=== PATIENT | male | born 1985 | race Hispanic/Latino ===

== ENCOUNTER 2025-01-23 17:44 | Emergency (ER) | payer OTHER ==
[~2025-01-23] VITALS: Ht 170.2 cm; Wt 117.9 kg
[2025-01-23 17:50] VITALS: BP 151/105; PULSE 87; RESP 16; TEMP 97.8
[2025-01-23] MEDS: LIDOCAINE HCL 1% 20 ML VIAL INJ SCH (18:26)
[2025-01-23] MEDS ORDERED: AMOX1TAB16 PO (18:27)
--- NOTE | 2025-01-23 18:27 | ERN ---
General Chief Complaint: Penis Problem Stated Complaint: FOREIGN ITEM IN PENIS, BURNING, POSSIBLE INFECTION Time Seen by MD: 17:57 History of Present Illness Initial Comments 39-year-old male presents or foreign body in the foreskin of his penis with some erosion. Patient reports that he has had a foreign body placed in [facility] awhile ago. He noticed over the last week small opening in the foreskin with some purulent drainage. He does report some tenderness. There is exposed foreign object. He denies any other symptoms. Allergies: Coded Allergies: No Known Allergies (Unverified Allergy, Unknown, 01/23/25) Home Meds Active Scripts Amoxicillin/Potassium Clav (Amox Tr-K Clv 875-125 mg Tab) 875 Mg-125 Mg Tablet, 1 TAB PO BID for 10 Days, #20 TAB 0 Refills Prov:RAVINDRA GAFFNEY DO 01/23/25 Past Medical History Past Medical History: No Pertinent History Past Surgical History: None ROS Dictation CONSTITUTIONAL: No chills, no fever, no weakness, no diaphoresis, no malaise. HEAD/FACE: No signs of trauma. EENT: No eye pain, no blurred vision, no tearing, no double vision, no ear pain, no ear discharge, no nose pain, no nasal congestion, no throat pain, no throat swelling, no mouth pain. RESPIRATORY: No cough, no orthopnea, no SOB, no stridor, no wheezing. CARDIOVASCULAR: No chest pain, no edema, no palpitations, no syncope. GASTROINTESTINAL/ABDOMINAL: No abdominal pain, no constipation, no diarrhea, no nausea, no vomiting. GENITOURINARY: Penis foreign body and discomfort MUSCULOSKELETAL: No back pain, no gout, no joint pain, no joint swelling, no muscle pain, no muscle stiffness, no neck pain. INTEGUMENTARY: No change in color, no change in hair/nails, no dryness, no lesion, no lumps, no rash. NEUROLOGICAL/PSYCH: No anxiety, not depressed, no emotional problem, no head ache, no numbness, no pre-existing deficit, no history of seizures, no tremors, no weakness. HEMATOLOGIC/LYMPHATIC: Not anemic, no history of blood clots, no apparent bleeding, no bruising, glands not swollen. All Systems Negative, Except as Noted. Physical Exam Physical Exam Dictation VITAL SIGNS: Reviewed. GENERAL APPEARANCE: Alert, oriented x3, no acute distress, obese. HEAD AND FACE: Non-traumatic. EYES: PERRL, pink conjunctivas, eyelid no trauma, anterior chamber clear. EARS: Pinnas intact and no signs of trauma or erythema. Ear canals clear and no discharge. TMs no erythema. NOSE: No discharge, no bleeding. OROPHARYNX: Mouth normal, teeth no caries, tongue pink. Pharynx clear, no erythema. Tonsils no exudates, no abscesses noted. Mucous membrane moist. NECK: Supple, non-tender, no thyromegaly, no masses, no JVD, no bruits. BREAST: Deferred. CHEST: No tenderness, no crepitus, no paradoxical movement, no retractions. LUNGS: Clear, well-ventilated, symmetric, no rales, no wheezing, no rhonchi, no stridor, good breath sounds bilaterally. HEART: Regular rate, regular rhythm, no murmur, no gallops. VASCULAR: No peripheral edema. ABDOMEN: Soft, positive bowel sounds, nondistended, no guarding, nontender, no rebound, no masses no hepatomegaly, no splenomegaly, no Rodríguez's sign, no hernias. RECTAL: Deferred. GENITAL: Exposed foreign body on the left side of the penis. NEUROLOGICAL: Normal speech, gross motor function intact, gross sensory function intact. MUSCULOSKELETAL: Neck nontender, full range of motion, back nontender, full range of motion. EXTREMITIES: Nontender, full range of motion. SKIN: Color pink, dry, no turgor, no rash, no lacerations, no abrasions, no contusions. LYMPHATICS: Deferred. MDM CC: Foreign object to the foreskin of the penis Historian: Patient Comorbidities: None Limitations by social determinants of health: None Differential diagnosis: Infection to the foreskin Vital signs stable Clinically there is a foreign body in the left side of the foreskin that it was exposed for there is some purulent drainage. I performed an incision and drainage removed foreign body. No complication. Wound was cleaned thoroughly. No further discharge. I did apply a bit of skin glue to close the opening which was about 1 cm in length. Superficial. No complications We will DC with a prescription for antibiotics and recommend OTC pain meds as needed. ED Course Orders Procedure Category Date Status Time Lidocaine Hcl 1% 20ml PHA 01/23/25 In Process Vial (Lidocaine Hc 18:00 Dermabond (Dermabond) PHA 01/23/25 Logged 18:30 Current Medications Medications (Trade) Dose Ordered Sig/Halina Route PRN Reason Start Time Stop Time Status Last Admin Dose Admin Lidocaine HCl (Lidocaine HCl 1% 20ml Vial) 5 ml ONCE INJ 01/23/25 18:00 01/23/25 23:00 01/23/25 18:26 Octyl Cyanoacrylate (Dermabond) 1 each ONCE TP 01/23/25 18:30 02/22/25 18:29 UNV Vital Signs Date Time Temp Pulse Resp B/P (MAP) Pulse Ox O2 Delivery O2 Flow Rate FiO2 01/23/25 17:50 97.9 87 16 151/105 98 Room Air 0 Additional Procedures Additional Procedures : Progress Procedure: Foreign body removal Location: Foreskin and penis Consent: Verbal Indication: Foreign body placed earlier, starting to erode through the foreskin now Procedure: 2 cc of lidocaine injected, 1%, good anesthesia. There was already a small opening with a foreign body. I extended the incision about 5 mm, for a total length of 1 cm incision. Foreign body was removed. There was no other foreign bodies. The opening area was cleaned with sterile water. The wound edges were approximated and skin glue applied. No complications. Total time [address] Gaffney. DX & DISP Disposition: Discharge Departure Impression: Primary Impression: Abscess of shaft of penis Condition: Stable Scripts Amoxicillin/Potassium Clav (Amox Tr-K Clv 875-125 mg Tab) 875 Mg-125 Mg Tablet 1 TAB PO BID for 10 Days, #20 TAB 0 Refills Prov: RAVINDRA GAFFNEY DO 01/23/25 Additional Instructions: Keep the wound clean with soap and water. Skin glue was applied. This will fall off on its own. I have prescribed Augmentin, which is an antibiotic. Please take the entire course to prevent infection. Please return to the emergency department if you have any concerns. Referrals: SELF,REFERRAL (PCP) RAVINDRA GAFFNEY DO Jan 23, 2025 18:27
[2025-01-23] MEDS ORDERED: OCTYL 2-CYANOACRYLATE 1 EACH TP SCH (18:30)
== END 2025-01-23 18:31 | disposition home or self-care (01) ==
LOC: EDH 17:44
DX: T19.4XXA Foreign body in penis, initial encounter (principal); Z79.899 Other long term (current) drug therapy; W45.8XXA Other foreign body or object entering through skin, initial encounter; Y93.89 Activity, other specified; Y92.89 Other specified places as the place of occurrence of the external cause; Y99.8 Other external cause status
CPT/HCPCS: 10120; 99285